=== PATIENT | male | born 2000 | race Caucasian/White ===

== ENCOUNTER 2021-09-23 21:26 | Emergency (ER) | payer BC, OTHER ==
[~2021-09-23] VITALS: Ht 180.3 cm; Wt 77.1 kg
[2021-09-23] MEDS ORDERED: HYDROCODONE/APAP 10MG-325MG TAB ONE (21:53)
[2021-09-23] MEDS ORDERED: HYDROCODONE/APAP 10MG-325MG TAB PO ONE (22:00)
[2021-09-23] MEDS ORDERED: NAPROXEN250 MG PO (23:22)
== END 2021-09-23 23:51 | disposition home or self-care (01) ==
LOC: ER 21:47
DX: S93.114A Dislocation of interphalangeal joint of right lesser toe(s), initial encounter (principal); W51.XXXA Accidental striking against or bumped into by another person, initial encounter; Y93.67 Activity, basketball; Y92.310 Basketball court as the place of occurrence of the external cause
CPT/HCPCS: 99283; 99284